=== PATIENT | female | born 1935 | race Caucasian/White ===

== ENCOUNTER → 2016-12-14 | Day surgery (SDC) | payer MEDICARE, OTHER ==
[2016-12-14 09:34] LABS: HCT 46.7 % (37.0-47.0); HGB 16.2 g/dl (12.5-16.0); MCHC 34.7 g/dL (32.0-36.0); MCV 89.3 fL (78.0-100.0); MPV 9.9 fL (6.0-9.5); RBC 5.23 M/uL (4.20-5.40); RDW 13.2 % (11.5-14.0); WBC 5.4 K/uL (4.0-10.5)
[2016-12-14 10:16] LABS: ALBUMIN 4.4 g/dL (3.4-4.8); BILIRUBIN - TOTAL 0.6 mg/dL (0.1-1.0); CREATININE 0.8 mg/dL (0.5-1.0); GLOBULIN (CALCULATION) 2.5 g/dL (2.2-4.2); POTASSIUM 4.3 mmol/L (3.5-5.1); TOTAL PROTEIN 6.9 g/dL (6.4-8.3)
== END | disposition home or self-care (01) ==
LOC: FAS 08:56
PROVIDERS: Surgery
DX: Z12.11 Encounter for screening for malignant neoplasm of colon (principal); K57.30 Diverticulosis of large intestine without perforation or abscess without bleeding; I10 Essential (primary) hypertension; M85.80 Other specified disorders of bone density and structure, unspecified site; Z88.0 Allergy status to penicillin; Z88.1 Allergy status to other antibiotic agents; Z88.8 Allergy status to other drugs, medicaments and biological substances; Z98.49 Cataract extraction status, unspecified eye; Z90.49 Acquired absence of other specified parts of digestive tract; Z90.710 Acquired absence of both cervix and uterus; Z90.89 Acquired absence of other organs; Z98.51 Tubal ligation status; Z98.890 Other specified postprocedural states; Z82.61 Family history of arthritis; Z80.6 Family history of leukemia; Z80.3 Family history of malignant neoplasm of breast; Z82.5 Family history of asthma and other chronic lower respiratory diseases; Z80.0 Family history of malignant neoplasm of digestive organs; Z82.49 Family history of ischemic heart disease and other diseases of the circulatory system; Z81.1 Family history of alcohol abuse and dependence; Z87.891 Personal history of nicotine dependence; Z79.899 Other long term (current) drug therapy
CPT/HCPCS: 36415; 80053; J2704

== ENCOUNTER → 2020-11-03 | Day surgery (SDC) | payer MEDICARE, OTHER ==
[~2020-11-03] MED LIST: ATENOLOL25 MG PO
[2020-11-03 08:57] LABS: HCT 44.8 % (37.0-47.0); HGB 14.7 g/dl (12.5-16.0); MCH 30.4 pg (25.0-31.0); MCHC 32.8 g/dL (32.0-36.0); MCV 92.8 fL (78.0-100.0); MPV 10.3 fL (6.0-9.5); RBC 4.83 M/uL (4.20-5.40); RDW 12.9 % (11.5-14.0); WBC 7.7 K/uL (4.0-10.5)
[2020-11-03 09:14] LABS: ALBUMIN 3.7 g/dL (3.4-5.0); BILIRUBIN - TOTAL 0.6 mg/dL (0.2-1.0); BUN/CREAT RATIO (CALC) 22.5 RATIO; CREATININE 0.8 mg/dL (0.51-0.95); GLOBULIN (CALCULATION) 3.1 g/dL; POTASSIUM 3.6 mmol/L (3.5-5.1); TOTAL PROTEIN 6.8 g/dL (6.4-8.2)
== END | disposition home or self-care (01) ==
LOC: FAS 07:40
PROVIDERS: Surgery
DX: C18.7 Malignant neoplasm of sigmoid colon (principal); K57.30 Diverticulosis of large intestine without perforation or abscess without bleeding; E78.00 Pure hypercholesterolemia, unspecified; K59.00 Constipation, unspecified; I10 Essential (primary) hypertension; Z88.0 Allergy status to penicillin; Z88.1 Allergy status to other antibiotic agents; Z87.891 Personal history of nicotine dependence
CPT/HCPCS: 36415; 80053; 82378; 88305; 88341; 88342; J2704; J7120

== ENCOUNTER 2022-03-26 06:12 | Emergency (ER) | payer MEDICARE, OTHER ==
[2022-03-26 07:01] LABS: HCT 42.4 % (37.0-47.0); HGB 13.7 g/dl (12.5-16.0); MCH 29.4 pg (25.0-31.0); MCHC 32.3 g/dL (32.0-36.0); RBC 4.66 M/uL (4.20-5.40); RDW 13.2 % (11.5-14.0); WBC 7.9 K/uL (4.0-10.5)
[2022-03-26 07:13] LABS: INR 1.17 (0.9-1.2); PROTHROMBIN TIME 14.3 SECONDS (11.8-13.4); PTT 30.6 SECONDS (24.4-34.7)
[2022-03-26 07:36] LABS: ALBUMIN 3.7 g/dL (3.4-5.0); BILIRUBIN - TOTAL 0.3 mg/dL (0.2-1.0); BUN/CREAT RATIO (CALC) 28.4 RATIO; CREATININE 0.88 mg/dL (0.51-0.95); GLOBULIN (CALCULATION) 3.3 g/dL; POTASSIUM 4.1 mmol/L (3.5-5.1)
[2022-03-26 08:48] LABS: BILIRUBIN NEGATIVE (NEGATIVE); BLOOD NEGATIVE Ery/uL (NEGATIVE); CLARITY CLEAR (CLEAR); COLOR YELLOW (YELLOW); GLUCOSE (U) NORMAL (NORMAL); LEUKOCYTES TRACE Leu/uL (NEGATIVE); NITRITE NEGATIVE (NEGATIVE); PROTEIN NEGATIVE (NEGATIVE); UROBILINOGEN 0.2 mg/dL (0.2-1.0)
[2022-03-26 09:03] LABS: URINARY WBC RARE
[2022-03-26 10:02] LABS: HCT 40.1 % (37.0-47.0); HGB 13.2 g/dl (12.5-16.0); MCH 29.7 pg (25.0-31.0); MCHC 32.9 g/dL (32.0-36.0); MCV 90.1 fL (78.0-100.0); MPV 10.2 fL (6.0-9.5); RBC 4.45 M/uL (4.20-5.40); WBC 10.5 K/uL (4.0-10.5)
== END 2022-03-26 11:43 | disposition home or self-care (01) ==
LOC: FER 06:12
PROVIDERS: Emergency Medicine; Internal Medicine
DX: S00.83XA Contusion of other part of head, initial encounter (principal); F03.90 Unspecified dementia, unspecified severity, without behavioral disturbance, psychotic disturbance, mood disturbance, and anxiety; I48.91 Unspecified atrial fibrillation; Z79.01 Long term (current) use of anticoagulants; W19.XXXA Unspecified fall, initial encounter; Y92.009 Unspecified place in unspecified non-institutional (private) residence as the place of occurrence of the external cause
CPT/HCPCS: 36415; 70450; 71250; 72125; 80053; 81001; 85610; 85730